=== PATIENT | male | born 1985 | race Caucasian/White ===

== ENCOUNTER 2023-06-13 14:50 | Emergency (ER) | payer SELFPAY ==
[2023-06-13 15:51] VITALS: BP 131/72
--- NOTE | 2023-06-13 16:28 | XRAY Report ---
PROCEDURE: Chest 2 View X-Ray INDICATIONS: cough TECHNIQUE: 2 views of the chest were acquired. COMPARISON: None. FINDINGS: Surgical changes and devices: None. Lungs and pleura: No pleural effusions or pneumothorax. Lungs are clear. Mediastinum: Mediastinal contours appear normal. Heart size is normal. Bones and chest wall: No suspicious bony lesions. Overlying soft tissues appear unremarkable. IMPRESSION: No acute cardiopulmonary process. Reviewed by: Vincent Lam on 06/13/2023 4:27 PM PDT Approved by: Vincent Lam on 06/13/2023 4:27 PM PDT Station ID: [id number]
[2023-06-13] MEDS ORDERED: dexAMETHasone 4 MG TABLET PO STA (17:11)
[2023-06-13] MEDS ORDERED: ALBUTEROL 1 PUFF INH STA (17:12)
--- NOTE | 2023-06-13 17:35 | ED Physician Documentation ---
PD HPI URI - Stated complaint Stated Complaint: COUGH - Chief complaint Chief Complaint: Resp - History obtained from History obtained from: Patient - History of Present Illness Timing - onset: How many weeks ago (1) Timing duration: Weeks (1) Timing details: Abrupt onset, Still present (general cough and congestion for a week that has become more prominent cough, non productive.) Associated symptoms: Nasal congestion, Productive cough, Dyspnea. No: Fever, Swollen nodes, Dry cough Contributing factors: No: Sick contact, COPD / asthma Recently seen: Not recently seen Review of Systems Constitutional: reports: Chills, Myalgias. denies: Fever Nose: reports: Congestion Throat: denies: Sore throat Cardiac: denies: Chest pain / pressure Respiratory: reports: Dyspnea, Cough, Wheezing GI: denies: Vomiting, Diarrhea PD PAST MEDICAL HISTORY - Past Medical History Respiratory: None - Present Medications Home Medications: Ambulatory Orders Medication Instructions Recorded Confirmed Albuterol Sulf [Ventolin Hfa 2 - 3 puffs INH QID #1 each 06/13/23 Inhaler] Amoxicillin 500 mg PO TID #24 cap 06/13/23 Benzonatate [Tessalon] 100 mg PO TID PRN #20 cap 06/13/23 dexAMETHasone [Decadron] 4 mg PO DAILY #5 tablet 06/13/23 - Allergies Allergies/Adverse Reactions: Allergies Allergy/AdvReac Type Severity Reaction Status Date / Time No Known Drug Allergies Allergy Verified 06/13/23 15:46 PD ED PE NORMAL - Vitals Vital signs reviewed: Yes - General General: Alert and oriented X 3, No acute distress, Well developed/nourished - HEENT HEENT: Pharynx benign - Neck Neck: Supple, no meningeal sign, No adenopathy - Cardiac Cardiac: RRR, No murmur - Respiratory Respiratory: No: Clear bilaterally (exp wheeing noted diffusely. No coarse sounds. ) - Abdomen Abdomen: Soft, Non tender - Derm Derm: Normal color - Extremities Extremities: No edema, No calf tenderness / cord - Neuro Neuro: Alert and oriented X 3, Normal speech Results - Vitals Vitals: Oxygen O2 Source Room air - Rads (name of study) chest xray Relevant Findings:: Prelim report reviewed, EMP independent interpretation of test (no infiltrates), See rad report PD Medical Decision Making - ED course Complexity details: considered differential (consider viral URI but is having more prominent cough and also wheezing. Will give inhaler, steroids, and consider antibiotic coverage as well.), d/w patient Departure - Departure Disposition: 01 Home, Self Care Clinical Impression: Lower resp. tract infection, Wheezing Condition: Stable Record reviewed to determine appropriate education?: Yes Instructions: ED Upper Resp Infec Abx Tx Prescriptions: Amoxicillin 500 mg PO TID #24 cap dexAMETHasone [Decadron] 4 mg PO DAILY #5 tablet Benzonatate [Tessalon] 100 mg PO TID PRN #20 cap PRN Reason: Cough Albuterol Sulf [Ventolin Hfa Inhaler] 2 - 3 puffs INH QID #1 each Comments: This more commonly will be a viral illness in combination with the wheezing and trouble breathing etc. Your chest x-ray does not show any pneumonia. However the duration of it raises concern of bacterial versus viral and we can add an antibiotic in case. Otherwise the breathing/wheezing can be improved with use of an albuterol inhaler 2 to 3 puffs 4 times daily for the next 7 to 10 days and longer if needed. Decadron steroid anti-inflammatory for bronchial inflammation for the next 5 days as well. Stay well-hydrated. You can add benzonatate if needed for cough. Amoxicillin antibiotic 3 times a day for 6 days for possible bacterial component. I would anticipate improvement over the next several days and resolving by 4 to 5 days. Recheck if not better in that timeframe. That said there may be some level of persistent cough even for several weeks to a month but should not feel ill. I sent your prescriptions to [facility] pharmacy. Discharge Date/Time: 06/13/23 17:48
== END 2023-06-13 17:48 | disposition home or self-care (01) ==
LOC: ED 14:50
DX: J22 Unspecified acute lower respiratory infection (principal)
CPT/HCPCS: 71046; 94640; 94664; 99283; 99284; J8540

== ENCOUNTER 2024-04-05 12:13 | Emergency (ER) | payer OTHER ==
[2024-04-05 12:36] VITALS: BP 146/85; O2SAT 96
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
== END 2024-04-05 12:55 | disposition home or self-care (01) ==
LOC: ED 12:13
DX: S06.0X0A Concussion without loss of consciousness, initial encounter (principal); W22.8XXA Striking against or struck by other objects, initial encounter; Y93.89 Activity, other specified; Y92.814 Boat as the place of occurrence of the external cause
CPT/HCPCS: 99282